=== PATIENT | male | born 1990 | race Caucasian/White ===

== ENCOUNTER 2017-07-18 16:57 | Emergency (ER) | payer OTHER ==
[~2017-07-18] VITALS: Ht 180.3 cm; Wt 73.2 kg
[2017-07-18 17:01] VITALS: BP 115/61; PULSE 97; TEMP 36.9; O2SAT 96; Ht 180.3 cm; Wt 73.2 kg
[2017-07-18] MEDS ORDERED: OMEG10007 PO (17:41)
[2017-07-18] MEDS ORDERED: ASCO500T3 PO (17:42)
--- NOTE | 2017-07-18 18:26 | DIAGNOSTIC IMAGING REPORT ---
CERVICAL SPINE 3 VIEWS, THORACIC SPINE 2 VIEWS HISTORY: neck pain COMPARISON: None. FINDINGS: The cervical spine is visualized from C1 through the superior endplate of T1. There is no fracture. No subluxation. Disc spaces are preserved. Prevertebral soft tissues and the atlantodens interval are intact. Straightening of the cervical spine. No fracture or subluxation within the thoracic spine. Paraspinal soft tissues are unremarkable. Disc spaces are preserved. Mild levoscoliosis of the lumbar spine. IMPRESSION: No significant abnormality within the cervical or thoracic spine by conventional radiographic technique. Electronically signed by: Sebastian Bates M.D. 07/18/2017 6:25 PM Dictated Date/Time: 07/18/2017 6:22 PM
[2017-07-18] MEDS ORDERED: IBUP-1427 PO (18:46)
[2017-07-18] MEDS ORDERED: CYCL5TAB PO (18:46)
--- NOTE | 2017-07-18 18:47 | EMERGENCY ROOM VISIT NOTE ---
ED Visit Note First contact with patient: 17:17 CHIEF COMPLAINT: Neck, upper back pain HISTORY OF PRESENT ILLNESS: This 26-year-old male patient presents to the emergency department, ambulatory, complaining of pain in the neck and upper back which began spontaneously yesterday. 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 He states the pain is not improving, however he has not tried any remedies to help. The patient works as a graduate research clinical services assistant, and states there was nothing abnormal about his job yesterday. He states it feels like something is being impinged, and has tenderness of the spine with deep breathing. He describes the pain as constant, and states he does have a headache which is at the base of his head. He denies any neck cracking or going to a chiropractor. He denies any previous history of neck or back problems. He he states nothing seems to help or worsen the pain. He is not a smoker and does not have any vascular disorders. The patient rates the pain as "an impingement" and 5/10. The patient does not have pain of the arms and shoulders. The patient denies numbness and tingling. The patient denies chest pain or shortness of breath. He denies recent travel. He denies history of blood clots. There was no head injury and no loss of consciousness. The patient denies blurred vision, abdominal pain, nausea, or vomiting. The patient denies change in personality. The patient does exercise and workout, and states he did not notice the pain as badly yesterday while working out after the pain began. He did not note that it got worse after exercise. He was lifting weights and doing cardiovascular training, but again this was typical. The patient has not recently been ill. He denies any fever. REVIEW OF SYSTEMS: A 10 system review of systems was completed with positives and pertinent negatives listed in the HPI. ALLERGIES: None MEDICATIONS: None PMH: None SOCIAL HISTORY: The patient lives locally. He denies drug, alcohol, tobacco use. PHYSICAL EXAM: VITALS: Vitals are noted on the nurse's note and reviewed by myself. Vital signs stable. GENERAL: This is a 26-year-old white male, in no acute distress, nondiaphoretic , well-developed well-nourished. SKIN: Capillary reflex less than 2 seconds. HEENT: Normocephalic. PERRLA. EOMI. Nares patent. Mucous membranes moist. Neck is supple without nuchal rigidity. Cervical and upper thoracic spine is tender to palpation. The patient denies tenderness of the paraspinal muscles bilaterally. There is no lymphadenopathy. MUSCULOSKELETAL: The patient has full range of motion of the bilateral arms. Strength 5/5 of the bilateral upper extremities. The patient has no worsening tenderness with movement of the neck. NEURO: Patient was alert and oriented to person place and time. Normal sensation to light and sharp touch. No focal neurologic deficits. RADIOLOGY: CERVICAL SPINE 3 VIEWS, THORACIC SPINE 2 VIEWS HISTORY: neck pain COMPARISON: None. FINDINGS: The cervical spine is visualized from C1 through the superior endplate of T1. There is no fracture. No subluxation. Disc spaces are preserved. Prevertebral soft tissues and the atlantodens interval are intact. Straightening of the cervical spine. No fracture or subluxation within the thoracic spine. Paraspinal soft tissues are unremarkable. Disc spaces are preserved. Mild levoscoliosis of the lumbar spine. IMPRESSION: No significant abnormality within the cervical or thoracic spine by conventional radiographic technique. Electronically signed by: Sebastian Bates M.D. 07/18/2017 6:25 PM Dictated Date/Time: 07/18/2017 6:22 PM EMERGENCY DEPARTMENT COURSE: I examined the patient. He was offered analgesics and muscle relaxers and declined. X-rays were performed and reviewed by myself and radiologist as above. I discussed the findings with the patient at bedside. I suspect a musculoskeletal etiology of the patient's symptoms, did recommend anti-inflammatory medication and muscle relaxers. I encouraged close outpatient follow-up with the patient's PCP and consider orthopedic follow-up if no improvement by next week. The patient was certainly encouraged to return to the emergency department for any worsening symptoms or other concerns. The patient will be given a prescription for high-dose ibuprofen and muscle relaxers. Discharge instructions reviewed, patient was discharged home in good condition. I attest that I have personally reviewed the patient's current medication list. Patient was found to have normal blood pressure on screening and does not require follow-up. Etiologies such as cervicalgia, lumbago, radicular pain, epidural abscess, osteomyelitis, fracture, aortic disease, vascular disease, metastatic disease, infection, pneumonia, pulmonary embolism, cardiovascular etiology, as well as others were entertained. DIAGNOSIS: cervicalgia The chart was completed utilizing [employer] water systems Speech voice recognition software. Grammatical errors, random word insertions, pronoun errors, and incomplete sentences are an occasional consequence of this system due to software limitations, ambient noise, and hardware issues. Any formal questions or concerns about the content, text, or information contained within the body of this dictation should be directly addressed to the provider for clarification. Current/Historical Medications Scheduled Ascorbic Acid (Vitamin C), 500 MG PO BID Fish Oil ([place]-3), 1 CAP PO BID Scheduled PRN Cyclobenzaprine Hcl (Flexeril), 5-10 MG PO TID PRN for Muscle Spasms Ibuprofen Tab (Motrin), 600 MG PO Q6H PRN for Pain Vital Signs Date Time Temp Pulse Resp B/P (MAP) Pulse Ox O2 Delivery O2 Flow Rate FiO2 07/18/17 17:01 36.9 97 18 115/61 96 Room Air Departure Information Impression Primary Impression: Cervicalgia Dispostion Home / Self-Care Condition GOOD Prescriptions Cyclobenzaprine Hcl (FLEXERIL) 5 Mg Tab 5-10 MG PO TID Y for Muscle Spasms, #15 TAB PRN Prov: Magalys Marcial PA-C 07/18/17 Ibuprofen Tab (MOTRIN) 600 Mg Tab 600 MG PO Q6H Y for Pain, #100 TAB Prov: Magalys Marcial PA-C 07/18/17 Referrals No Doctor, Assigned (PCP) El Samuel, DO Patient Instructions ED Neck Pain No Trauma, [facility] Additional Instructions You have been treated in the Emergency Department for Neck Pain. You have been prescribed Flexeril (cyclobenzaprine) 1-2 tabs orally, three times per day. Do NOT exceed 30 mg (6 tabs) per day. Take your first dose at bedtime as it can make you drowsy. Always take all medications as prescribed. For pain control, you can use the following [id number] medicines (if >12 yo): Ibuprofen(Motrin, Advil) may be used for fever or pain. Use 600mg every six hours as needed. Take with food. Avoid using more than 2400mg in a 24 hour period. Do not use 2400mg per day for more than three consecutive days without physician direction. Prolonged inappropriate use can lead to stomach upset or ulcers. (AND/OR) Acetaminophen(Tylenol) may be used for fever or pain. Use 1000mg every six hours as needed. Avoid using more than 3000mg in a 24 hour period. If this is an acute injury, ice can be applied to the area of pain for the first 3 days to help decrease pain and inflammation. After the first 3 days, a heating pad can be used over the area for continued soothing relief. You should schedule a follow-up appointment in 2-3 days with your Primary Care Provider for further evaluation and treatment of your neck pain. Return to the Emergency Department if your current symptoms worsen despite treatment course outlined above, or if you develop any of the following symptoms : intractable pain despite aforementioned treatment course, facial droop, slurred speech, unilateral weakness, or worsening of her current symptoms.
== END 2017-07-18 19:05 | disposition home or self-care (01) ==
LOC: C.EDB 16:59 → C.EDD 19:05
DX: M54.2 Cervicalgia (principal); M54.6 Pain in thoracic spine